=== PATIENT | male | born 1990 | race African-American/Black ===

== ENCOUNTER 2017-07-27 12:25 | Emergency (ER) | payer OTHER ==
[~2017-07-27] VITALS: Ht 177.8 cm; Wt 81.6 kg
[2017-07-27 12:31] VITALS: BP 101/63
--- NOTE | 2017-07-27 12:35 | Emergency Room Report ---
History of Present Illness General Chief Complaint: Chest Pain Source: Patient Present Illness HPI Patient presents with complaints of chest pain heaviness sensation ongoing for the past 5 days He reports that he was talking to someone when the pain came on Denies any shortness of breath denies any pleurisy Heaviness is 3 out of 10 Denies any change with position Denies any vomiting or diarrhea denies any recent travel patient reports that he has had several EKGs in the past however has not been told much about the findings Allergies: Coded Allergies: No Known Allergies (Unverified , 07/27/17) Patient History Past Medical History: see triage record Pertinent Family History: none Reviewed Nursing Documentation: PMH: Agreed; PSxH: Agreed Nursing Documentation-PMH Past Medical History: No History, Except For Hx Neurological Problems: Yes - depression Review of Systems All Other Systems: negative except mentioned in HPI Physical Exam Vital Signs Date Time Temp Pulse Resp B/P (MAP) Pulse Ox O2 Delivery O2 Flow Rate FiO2 07/27/17 12:16 98.1 90 18 101/63 100 Room Air 98.1 Sp02 EP Interpretation: reviewed, normal General Appearance: well appearing, no apparent distress Head: normocephalic, atraumatic Eyes: bilateral eye PERRL, bilateral eye EOMI ENT: hearing grossly normal, normal pharynx, TMs + canals normal, uvula midline Neck: full range of motion, supple, no meningismus, no bony tend Respiratory: lungs clear, normal breath sounds, no rhonchi, no respiratory distress, no retraction, no accessory muscle use Cardiovascular #1: normal peripheral pulses, regular rate, rhythm, no edema, no gallop, no JVD, no murmur Gastrointestinal: normal bowel sounds, non tender, soft, no mass, no organomegaly, non-distended, no guarding, no hernia, no pulsatile mass, no rebound Genitourinary: no CVA tenderness Musculoskeletal: normal inspection Neurologic: oriented x3, responsive, 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, motor strength/ tone normal, sensory intact Psychiatric: mood/affect normal Skin: normal color, no rash, warm/dry, palpation normal Lymphatic: normal inspection, no adenopathy Medical Decision Making Diagnostic Impression: Primary Impression: Chest pain ER Course Multiple differentials considered, including but not limited to cardiac, cardiopulmonary vascular pathology Patient's EKG and chest x-ray are normal There are no signs of end organ cardiac pathology Further blood work has not been obtained and patient stable for close outpatient follow-up smoking cessation also discussed, EKG Diagnostic Results Rate: normal ST Segments: no acute changes - Early re-polerization Rhythm Strip Diag. Results EP Interpretation: yes Rate: 77 Rhythm: NSR, no PVC's, no ectopy Chest X-Ray Diagnostic Results Chest X-Ray Diagnostic Results : Chest X-Ray Ordered: Yes # of Views/Limited/Complete: 1 View Indication: Chest Pain EP Interpretation: Yes Interpretation: no consolidation, no effusion, no pneumothorax Impression: No acute disease Electronically Signed by: Elle Hunt DO Last Vital Signs Date Time Temp Pulse Resp B/P (MAP) Pulse Ox O2 Delivery O2 Flow Rate FiO2 07/27/17 12:31 98.1 18 101/63 100 Room Air 98.1 07/27/17 12:31 90 Status: improved Disposition: HOME, SELF-CARE Condition: Improved Scripts Ibuprofen* (MOTRIN*) 600 Mg Tablet 600 MG ORAL Q8H PRN for For Pain, #20 TAB 0 Refills Prov: Elle Hunt DO 07/27/17 Additional Instructions: Patient is provided with the discharge instructions notified to follow up with primary doctor in the next 2-3 days otherwise return to the er with any worsening symptoms. Please note that this report is being documented using [employer] technology. This can lead to erroneous entry secondary to incorrect interpretation by the dictating instrument. Elle Hunt DO July 27, 2017 12:35
[2017-07-27] MEDS ORDERED: IBUPROFEN600 MG ORAL (13:15)
[2017-07-27 13:20] VITALS: BP 106/69
--- NOTE | 2017-07-28 10:36 | Diagnostic Imaging Report ---
Indication: Chest pain Comparison: None A single view chest radiograph was obtained. Findings: Cardiomediastinal appearance is within normal limits for age. Pulmonary vascularity is appropriate. The diaphragmatic contour is smooth and costophrenic angles are sharp. No pleural effusions are identified. The bones are unremarkable. Impression: No acute findings
--- NOTE | 2017-07-31 19:41 | Cardiology Report ---
APPROVED REPORT EKG Measurement Heart [id number] Normal sinus rhythm Early repolarization Normal ECG
== END 2017-07-27 13:20 | disposition home or self-care (01) ==
LOC: EDBD 12:25 → EMR 12:40
DX: R07.89 Other chest pain (principal)
CPT/HCPCS: 71045; 93005; 99283